=== PATIENT | male | born 1950 | race Caucasian/White ===

== ENCOUNTER → 2018-11-19 | Outpatient (CLI) | payer BC, OTHER ==
[~2018-11-19] MED LIST: ASPIRIN EC81 M1 PO; ASPIRIN325 PO; ASPIRIN81 M2 PO; CELEBREX 200 M200 M1 PO; CELEBREX 200 M200 MG PO; COZAAR 50 MG TA50 M1 PO; CRESTOR40 MG PO; FISH OIL 1,0001 EAC5 PO; HYDROXYCHLOROQ200 M1 PO; MICARDIS40 MG PO; MULTIVITAMINS PO; NORCO 5-325 TA1 EACH PO; NORFLEX100 MG PO; VITAMIN D1000 UNI1 PO
== END ==
LOC: ULTRA 09:30
DX: I73.9 Peripheral vascular disease, unspecified (principal)